=== PATIENT | male | born 1995 | race Caucasian/White ===

== ENCOUNTER → 2019-07-23 | Outpatient (CLI) | payer BC ==
--- NOTE | 2019-07-23 19:12 | FL ---
EXAMINATION: Cervical and Thoracic Esophagram DATE OF EXAM: 07/23/2019 CLINICAL INDICATION: 23-year-old male with dysphagia, cough, right-sided neck swelling. COMPARISON: None Total Fluoroscopy Time: 1 minute 19 seconds. Total images: 31. FINDINGS: The swallowing mechanism is normal and hypopharyngeal anatomy is preserved. The cervical and thoracic portions have a normal course and caliber and normal motility. The mucosa is normal and no persistent filling defect is encountered. No hiatal hernia is present. A single spontaneous episode of mild gastroesophageal reflux is demonstrated while the patient is ret urning in the table down position. No subsequent gastroesophageal reflux could be elicited. IMPRESSION: 1. A single spontaneous episode of mild gastroesophageal reflux in the table down position. 2. Otherwise, unremarkable esophagram. If there is visually apparent neck swelling, consider ultrasou nd evaluation including assessment of the thyroid gland.
== END | disposition home or self-care (01) ==
LOC: RADFLMAIN 10:49
PROVIDERS: ATTEND Otolaryngology
DX: K21.9 Gastro-esophageal reflux disease without esophagitis (principal)
CPT/HCPCS: 74220

== ENCOUNTER → 2019-10-04 | Outpatient (CLI) | payer BC ==
--- NOTE | 2019-10-04 10:10 | CT ---
EXAMINATION TYPE: CT soft tissue neck w con DATE OF EXAM: 10/04/2019 COMPARISON: None HISTORY: Episodes of dysphagia, dyspnea (sub thyroid cartilage). New submandibular swelling on left CT DLP: 432.8 mGycm CONTRAST: CT scan of the neck is performed with IV Contrast, patient injected with 100 mL of Isovue 300. Contrast enhanced CT of the neck was performed from the skull base through the lung apices. BB marker was placed at the site of clinical concern left neck. At the site of clinical concern there is an 8 mm hypoattenuating lesion of uncertain etiology which may reflect a lymph node. Intraparotid lesion is difficult to exclude. AIRWAY: The supraglottic, glottic, and subglottic portions of the airway appear patent and free of mass. SALIVARY GLANDS: The submandibular glands are free of mass or inflammatory process. THYROID GLAND: No nodules or masses seen. LYMPH NODES: No adenopathy seen greater than 1cm. LUNG APICES: No nodule or mass is seen. OTHER: Vascular structures are patent. No significant degenerative change of the cervical spine. N o abscess seen. IMPRESSION: At the site of clinical concern there is an 8 mm hypoattenuating lesion of uncertain etiology which m ay reflect a lymph node. Intraparotid lesion is difficult to exclude.
== END | disposition home or self-care (01) ==
LOC: RADCTMAIN 09:26
PROVIDERS: ATTEND Otolaryngology
DX: R13.10 Dysphagia, unspecified (principal); J02.9 Acute pharyngitis, unspecified
CPT/HCPCS: 70491

== ENCOUNTER → 2020-06-08 | Outpatient (CLI) | payer BC ==
[2020-06-08 13:52] LABS: African American GFR (CKD) >90 (>60 ml/min/1.73 sqM); Blood Urea Nitrogen 15 mg/dL (9-20); Non-African American GFR(CKD) >90 (>60 ml/min/1.73 sqM)
--- NOTE | 2020-06-08 13:58 | CT ---
EXAMINATION TYPE: CT soft tissue neck w con DATE OF EXAM: 06/08/2020 COMPARISON: 10/04/2019 HISTORY: Parotid nodule CT DLP: 359.50 mGycm CONTRAST: CT scan of the neck is performed with IV Contrast, patient injected with 100 ml mL of Isovue 300. Contrast enhanced CT of the neck was performed from the skull base through the lung apices. AIRWAY: The supraglottic, glottic, and subglottic portions of the airway appear patent and free of mass. SALIVARY GLANDS: Previously noted nodule adjacent to the lower pole of the left parotid gland is not clearly visualized at this time. No new nodules are seen. Submandibular glands are unremarkable. No i nflammatory processes seen. THYROID GLAND: No nodules or masses seen. LYMPH NODES: 1.3 cm lymph node right internal jugular chain measured less than 1 cm previously. A 1.2 cm mildly enlarged lymph node left internal jugular chain versus less than 1 cm previously. No addit ional adenopathy appreciated. LUNG APICES: No nodule or mass is seen. OTHER: Vascular structures are patent. No significant degenerative change of the cervical spine. N o abscess seen. IMPRESSION: 1.Previously noted nodule adjacent to the lower pole of the left parotid gland is not clearly visuali zed at this time. No new nodules are seen. 2. Internal jugular chain adenopathy as discussed above.
== END | disposition home or self-care (01) ==
LOC: RADCTMAIN 13:01
PROVIDERS: ATTEND Otolaryngology
DX: R59.9 Enlarged lymph nodes, unspecified (principal); D11.0 Benign neoplasm of parotid gland
CPT/HCPCS: 82565; 84520; 70491; 36415; Q9967

== ENCOUNTER 2021-01-10 17:29 | Emergency (ER) | payer BC ==
[2021-01-10] MEDS ORDERED: MAG HYDROX/AL HYDROX/SIMETH 30 ML, HYOSCYAMINE ELIXIR 10 ML, LIDOCAINE VISCOUS 2% 10 ML PO STA ×3 (18:03)
[2021-01-10] MEDS ORDERED: SODIUM CHLORIDE 0.9% 1,000 ML IV STA (18:03)
[2021-01-10 18:40] LABS: Basophils % (A) 0 %; Eosinophils # (A) 0.2 k/uL (0-0.7); Eosinophils % (A) 2 %; HCT 45.5 % (39.0-53.0); HGB 15.7 gm/dL (13.0-17.5); Lymphocytes # (A) 2.3 k/uL (1.0-4.8); Lymphocytes % (A) 31 %; MCH 33.6 pg (25.0-35.0); MCHC 34.4 g/dL (31.0-37.0); MCV 97.5 fL (80.0-100.0); Mean Platelet Volume 7.1; Monocytes # (A) 0.5 k/uL (0-1.0); Monocytes % (A) 6 %; Neutrophils # (A) 4.3 k/uL (1.3-7.7); Neutrophils % (A) 58 %; Platelet Count 192 k/uL (150-450); RBC 4.67 m/uL (4.30-5.90); RDW 11.6 % (11.5-15.5); WBC 7.4 k/uL (3.8-10.6)
[2021-01-10 18:45] LABS: Appearance,Urine Clear (Clear); Bilirubin,Urine Negative (Negative); Blood,Urine Negative (Negative); Color,Urine Colorless; Glucose,Urine (UA) Negative (Negative); Ketones,Urine Negative (Negative); Leukocyte Esterase,Urine Negative (Negative); Nitrite,Urine Negative (Negative); Protein,Urine Negative (Negative); Specific Gravity,Urine 1.002 (1.001-1.035); Urobilinogen,Urine <2.0 mg/dL (<2.0)
[2021-01-10 18:55] LABS: ALT 17 U/L (4-49); AST 24 U/L (17-59); African American GFR (CKD) >90 (>60 ml/min/1.73 sqM); Alkaline Phosphatase 55 U/L (38-126); Amylase 57 U/L (30-110); Anion Gap 8 mmol/L; Blood Urea Nitrogen 9 mg/dL (9-20); Calcium 9.9 mg/dL (8.4-10.2); Carbon Dioxide 30 mmol/L (22-30); Chloride 102 mmol/L (98-107); Glucose 94 mg/dL (74-99); Lipase 44 U/L (23-300); Non-African American GFR(CKD) >90 (>60 ml/min/1.73 sqM); Potassium 3.8 mmol/L (3.5-5.1); Sodium 140 mmol/L (137-145); Total Bilirubin 1.2 mg/dL (0.2-1.3); Total Protein 7.8 g/dL (6.3-8.2)
--- NOTE | 2021-01-10 19:01 | ED ---
Abdominal Pain HPI - General Source: patient Mode of arrival: ambulatory Limitations: no limitations <Silvestre Brooks - Last Filed: 01/10/21 19:50> <Sahil Up - Last Filed: 01/10/21 20:50> - General Chief Complaint: Abdominal Pain Stated Complaint: Difficulty Breathing, Chest Pain Time Seen by Provider: 01/10/21 17:36 - History of Present Illness Initial Comments: 25 year old male presenting to the emergency department with multiple chief complaints. Patient reports he has been dealing with epigastric abdominal pain and lower chest pain for approximately 1 year. Patient is a T seen his primary care physician multiple times. States he has also seen an ENT and GI specialist with no significant findings. Patient has had barium swallows, CT imaging of the neck as well as an upper GI scope. Patient was diagnosed with GERD and started on Protonix. Patient reports initially this helped alleviate some of the symptoms but now they're gradually returning. Patient reports he feels sharp pain 10/10 that usually last for about 30 minutes in the epigastric abdominal region and the lower midsternal region without any radiation. He states the pain is exacerbated when taking deep breaths. He denies any fevers or chills. He does report occasional diarrhea. (Silvestre Brooks) - Related Data Home Medications Medication Instructions Recorded Confirmed Multivitamins, Thera [Multivitamin 1 tab PO DAILY 01/10/21 01/10/21 (formulary)] Omeprazole 40 mg PO DAILY 01/10/21 01/10/21 Allergies Allergy/AdvReac Type Severity Reaction Status Date / Time No Known Allergies Allergy Verified 01/10/21 20:33 Review of Systems ROS Other: All systems not noted in ROS Statement are negative. <Silvestre Brooks - Last Filed: 01/10/21 19:50> ROS Other: All systems not noted in ROS Statement are negative. <Sahil Up - Last Filed: 01/10/21 20:50> ROS Statement: Those systems with pertinent positive or pertinent negative responses have been documented in the HPI. Past Medical History Past Medical History: No Reported History History of Any Multi-Drug Resistant Organisms: None Reported Past Surgical History: No Surgical Hx Reported Past Psychological History: No Psychological Hx Reported Smoking Status: Current every day smoker Past Alcohol Use History: None Reported Past Drug Use History: Marijuana <Silvestre Brooks - Last Filed: 01/10/21 19:50> General Exam Limitations: no limitations General appearance: alert, in no apparent distress, anxious Head exam: Present: atraumatic, normocephalic, normal inspection Eye exam: Present: normal appearance, PERRL, EOMI Pupils: Present: normal accommodation ENT exam: Present: normal exam, normal oropharynx, mucous membranes moist, TM's normal bilaterally, normal external ear exam Neck exam: Present: normal inspection, full ROM. Absent: tenderness Respiratory exam: Present: normal lung sounds bilaterally, chest wall tenderness (Lower midsternal chest pain). Absent: respiratory distress, wheezes, rales, rhonchi, stridor Cardiovascular Exam: Present: regular rate, normal rhythm, normal heart sounds GI/Abdominal exam: Present: soft, tenderness (Epigastric abdominal pain). Absent: distended Extremities exam: Present: normal inspection, full ROM, normal capillary refill. Absent: tenderness Back exam: Present: normal inspection, full ROM. Absent: tenderness, CVA tenderness (R), CVA tenderness (L) Neurological exam: Present: alert, oriented X3 Psychiatric exam: Present: normal affect, normal mood, anxious Skin exam: Present: warm, dry, intact, normal color <Silvestre Brooks - Last Filed: 01/10/21 19:50> Course Vital Signs 01/10/21 01/10/21 17:32 20:08 Temperature 98.1 F Pulse Rate 103 H 64 Respiratory 18 17 Rate Blood Pressure 149/81 128/81 O2 Sat by Pulse 100 100 Oximetry Medical Decision Making - Lab Data Result diagrams: 01/10/21 18:33 01/10/21 18:33 <Silvestre Brooks - Last Filed: 01/10/21 19:50> - Lab Data Result diagrams: 01/10/21 18:33 01/10/21 18:33 - Radiology Data Radiology results: report reviewed (CT abdomen/pelvis with IV contrast: No significant abnormality is seen) <Sahil Up - Last Filed: 01/10/21 20:50> - Medical Decision Making 25-year-old male presents to emergency department with multiple chief complaints. On physical examination, very mild epigastric abdominal tenderness. Patient is slightly emotional and anxious. CBC, CMP, UA, d-dimer, troponin is negative. EKG showing sinus rhythm with no significant ST or T-wave changes. CT of abdomen pelvis (Silvestre Brooks) - Lab Data Lab Results 01/10/21 01/10/21 01/10/21 Range/Units 18:33 18:33 18:33 WBC 7.4 (3.8-10.6) k/uL RBC 4.67 (4.30-5.90) m/uL Hgb 15.7 (13.0-17.5) gm/dL Hct 45.5 (39.0-53.0) % MCV 97.5 (80.0-100.0) fL MCH 33.6 (25.0-35.0) pg MCHC 34.4 (31.0-37.0) g/dL RDW 11.6 (11.5-15.5) % Plt Count 192 (150-450) k/uL MPV 7.1 Neutrophils % 58 % Lymphocytes % 31 % Monocytes % 6 % Eosinophils % 2 % Basophils % 0 % Neutrophils # 4.3 (1.3-7.7) k/uL Lymphocytes # 2.3 (1.0-4.8) k/uL Monocytes # 0.5 (0-1.0) k/uL Eosinophils # 0.2 (0-0.7) k/uL Basophils # 0.0 (0-0.2) k/uL D-Dimer (<0.60) mg/L FEU Sodium 140 (137-145) mmol/L Potassium 3.8 (3.5-5.1) mmol/L Chloride 102 (98-107) mmol/L Carbon Dioxide 30 (22-30) mmol/L Anion Gap 8 mmol/L BUN 9 (9-20) mg/dL Creatinine 0.98 (0.66-1.25) mg/dL Est GFR (CKD-EPI)AfAm >90 (>60 ml/min/1.73 sqM) Est GFR (CKD-EPI)NonAf >90 (>60 ml/min/1.73 sqM) Glucose 94 (74-99) mg/dL Calcium 9.9 (8.4-10.2) mg/dL Total Bilirubin 1.2 (0.2-1.3) mg/dL AST 24 (17-59) U/L ALT 17 (4-49) U/L Alkaline Phosphatase 55 (38-126) U/L Troponin I (0.000-0.034) ng/mL Total Protein 7.8 (6.3-8.2) g/dL Albumin 5.0 (3.5-5.0) g/dL Amylase 57 (30-110) U/L Lipase 44 (23-300) U/L Urine Color Colorless Urine Appearance Clear (Clear) Urine pH 8.0 (5.0-8.0) Ur Specific [place] 1.002 (1.001-1.035) Urine Protein Negative (Negative) Urine Glucose (UA) Negative (Negative) Urine Ketones Negative (Negative) Urine Blood Negative (Negative) Urine Nitrite Negative (Negative) Urine Bilirubin Negative (Negative) Urine Urobilinogen <2.0 (<2.0) mg/dL Ur Leukocyte Esterase Negative (Negative) 01/10/21 01/10/21 Range/Units 18:33 18:33 WBC (3.8-10.6) k/uL RBC (4.30-5.90) m/uL Hgb (13.0-17.5) gm/dL Hct (39.0-53.0) % MCV (80.0-100.0) fL MCH (25.0-35.0) pg MCHC (31.0-37.0) g/dL RDW (11.5-15.5) % Plt Count (150-450) k/uL MPV Neutrophils % % Lymphocytes % % Monocytes % % Eosinophils % % Basophils % % Neutrophils # (1.3-7.7) k/uL Lymphocytes # (1.0-4.8) k/uL Monocytes # (0-1.0) k/uL Eosinophils # (0-0.7) k/uL Basophils # (0-0.2) k/uL D-Dimer <0.17 (<0.60) mg/L FEU Sodium (137-145) mmol/L Potassium (3.5-5.1) mmol/L Chloride (98-107) mmol/L Carbon Dioxide (22-30) mmol/L Anion Gap mmol/L BUN (9-20) mg/dL Creatinine (0.66-1.25) mg/dL Est GFR (CKD-EPI)AfAm (>60 ml/min/1.73 sqM) Est GFR (CKD-EPI)NonAf (>60 ml/min/1.73 sqM) Glucose (74-99) mg/dL Calcium (8.4-10.2) mg/dL Total Bilirubin (0.2-1.3) mg/dL AST (17-59) U/L ALT (4-49) U/L Alkaline Phosphatase (38-126) U/L Troponin I <0.012 (0.000-0.034) ng/mL Total Protein (6.3-8.2) g/dL Albumin (3.5-5.0) g/dL Amylase (30-110) U/L Lipase (23-300) U/L Urine Color Urine Appearance (Clear) Urine pH (5.0-8.0) Ur Specific [place] (1.001-1.035) Urine Protein (Negative) Urine Glucose (UA) (Negative) Urine Ketones (Negative) Urine Blood (Negative) Urine Nitrite (Negative) Urine Bilirubin (Negative) Urine Urobilinogen (<2.0) mg/dL Ur Leukocyte Esterase (Negative) - EKG Data EKG Comments: Sinus rhythm with no ST or T-wave changes next M ventricular rate 81, OK 146, QRS 104, QTC 427. (Silvestre Brooks) Disposition Is patient prescribed a controlled substance at d/c from ED?: No Time of Disposition: 19:51 <Silvestre Brooks - Last Filed: 01/10/21 19:50> Time of Disposition: 20:50 <Sahil Up - Last Filed: 01/10/21 20:50> Clinical Impression: Abdominal pain, epigastric Disposition: HOME SELF-CARE Condition: Stable Instructions (If sedation given, give patient instructions): Abdominal Pain (ED) Additional Instructions: Follow-up with a GI specialist. Return to emergency department if symptoms worsen. Referrals: Clover High MD [Primary Care Provider] - 1-2 days Jimenez Gallegos MD [STAFF PHYSICIAN] - 1-2 days
--- NOTE | 2021-01-10 20:41 | CT ---
EXAMINATION TYPE: CT abdomen pelvis w con DATE OF EXAM: 01/10/2021 COMPARISON: 10/20/2016 HISTORY: Epigastric abdominal pain CT DLP: 802.8 mGycm Automated exposure control for dose reduction was used. TECHNIQUE: Helical acquisition of images was performed from the lung bases through the pelvis. CONTRAST: Performed without Oral Contrast and with IV Contrast, patient injected with 100 ml mL of Isovue 300. FINDINGS: LUNG BASES: No significant abnormality is appreciated. LIVER/GB: No significant abnormality is appreciated. PANCREAS: No significant abnormality is seen. SPLEEN: No significant abnormality is seen. ADRENALS: No significant abnormality is seen. KIDNEYS: No significant abnormality is seen. FREE AIR: No free air is visualized. RETROPERITONEAL ADENOPATHY: None visualized URINARY BLADDER: No significant abnormality is seen. PELVIC ADENOPATHY: None visualized. OSSEOUS STRUCTURES: No significant abnormality is seen. BOWEL: No significant abnormality is seen. IMPRESSION: NO SIGNIFICANT ABNORMALITY SEEN. ETIOLOGY OF THE PATIENT'S EPIGASTRIC PAIN IS INDETERMINATE ON THIS E XAM.
[2021-01-10 21:23] VITALS: BP 120/74; PULSE 80; RESP 18; TEMP 98.2
== END 2021-01-10 21:23 | disposition home or self-care (01) ==
LOC: EC 17:29
DX: R10.13 Epigastric pain (principal); R07.89 Other chest pain; F17.200 Nicotine dependence, unspecified, uncomplicated; F12.90 Cannabis use, unspecified, uncomplicated; K21.9 Gastro-esophageal reflux disease without esophagitis
CPT/HCPCS: 36415; 93005; 85379; 80053; 82150; 83690; 84484; 85025; 81003; 74177; 99284; Q9967; 99285

== ENCOUNTER → 2021-02-15 | Day surgery (SDC) | payer BC ==
[2021-02-10 14:48] VITALS: BMI 24.3
[~2021-02-15] MED LIST: LACTATED RINGERS 1,000 ML IV SCH; LIDOCAINE 1% (10MG/ML) FOR IV START INTRADERMA PRN; LIDOCAINE 1% INJ 10MG/ML (20 ML MDV) ONE; PROPOFOL 10 MG/ML 20 ML VIAL IV ONE
[2021-02-15 10:17] VITALS: RESP 16; TEMP 98.1
--- NOTE | 2021-02-15 11:51 | P.PCN ---
Date of Procedure: 02/15/21 Description of Procedure: Brief history: Patient is a pleasant 25-year-old male presenting for outpatient EGD and colonoscopy for evaluation of epigastric abdominal pain and change in bowel habits. Patient was seen in the clinic reporting symptoms of epigastric abdominal pain increased with stress. Computed tomography scan performed in evaluation negative for any intra-abdominal pathology. He had been started on omeprazole 40 mg daily with some improvement of symptoms however still having breakthrough reflux episodes of solid food dysphagia predominantly food present throughout. He also is reporting 2-3 loose bowel movements with associated urgency. Procedure performed: Esophagogastroduodenoscopy with biopsies Colonoscopy with biopsies Estimated blood loss: Minimal. Preoperative diagnosis: Epigastric abdominal pain, change in bowel habits Anesthesia: MAC Procedure: After informed consent was obtained from the patient was brought into the endoscopy unit and IV sedation was administered by anesthesia under continuous monitoring. Initially upper endoscopy was done. The Olympus GF 190 video endoscope was inserted into the mouth and esophagus intubated without any difficulty and was gradually advanced into the stomach and duodenum and carefully examined. The bulb and second part of the duodenum appeared normal, with biopsies taken. The scope was then withdrawn into the stomach adequately insufflated with air and upon careful examination the antrum and body, cardia and fundus appeared normal, except for some mild punctate erythema in the antrum and body suggestive of gastritis biopsies taken. The scope was then withdrawn into the esophagus. The GE junction was located at 45 cm to the incisors and biopsied. It appeared regular with no erythema erosions or ulcerations with biopsies taken of the midesophagus to rule out eosinophilic esophagitis. Rest of the esophagus appeared normal. Patient tolerated the procedure well. At this time the patient continued to remain sedation. Initial digital rectal examination was normal. Olympus CF 190 video colonoscope was then inserted into the rectum and gradually advanced to the cecum without any difficulty. Careful examination was performed as the scope was gradually being withdrawn. The prep was excellent. The cecum, ascending colon, transverse colon, descending colon, sigmoid colon and rectum appeared normal and normal-appearing terminal ileum with random biopsies taken of the right colon, left colon and terminal ileum due to altered bowel function . Retroflexion was performed in the rectum and no lesions were noted, Low-grade internal hemorrhoids noted. Patient tolerated the procedure well. Impression: 1. Mild gastritis. Biopsies of the duodenum, antrum and body, GE junction and mid esophagus. 2. Normal-appearing colon from rectum to cecum with normal-appearing terminal ileum and random biopsies taken of the right colon, left colon and terminal ileum. Recommendations: Findings of this examination were discussed with the patient as well as His girlfriend. Okay to resume diet. Okay to resume medication. Await pathology from biopsies. Continue current medical management. Follow-up in the GI clinic as scheduled.
[2021-02-15 12:21] VITALS: BP 122/58; PULSE 69
[2021-02-15 14:15] LABS: HCT 42.2 % (39.0-53.0); HGB 14.6 gm/dL (13.0-17.5); MCH 33.6 pg (25.0-35.0); MCHC 34.6 g/dL (31.0-37.0); Mean Platelet Volume 7.6; Platelet Count 174 k/uL (150-450); RBC 4.35 m/uL (4.30-5.90); RDW 11.8 % (11.5-15.5); WBC 6.5 k/uL (3.8-10.6)
[2021-02-15 14:35] LABS: ALT 20 U/L (4-49); AST 30 U/L (17-59); African American GFR (CKD) >90 (>60 ml/min/1.73 sqM); Albumin 4.4 g/dL (3.5-5.0); Alkaline Phosphatase 58 U/L (38-126); Anion Gap 6 mmol/L; Blood Urea Nitrogen 14 mg/dL (9-20); C Reactive Protein 6.8 mg/L (<10.0); Calcium 9.7 mg/dL (8.4-10.2); Carbon Dioxide 30 mmol/L (22-30); Chloride 103 mmol/L (98-107); Glucose 86 mg/dL (74-99); Non-African American GFR(CKD) >90 (>60 ml/min/1.73 sqM); Potassium 4.4 mmol/L (3.5-5.1); Sodium 139 mmol/L (137-145); Total Bilirubin 0.7 mg/dL (0.2-1.3)
[2021-02-15 16:15] LABS: Erythrocyte Sedimentation Rate 2 mm/hr (0-15)
[2021-02-15 20:08] LABS: Gliadin AB IgA, Deaminated NEGATIVE (NEGATIVE); Gliadin AB IgA, Unit <0.2 U/mL; Gliadin AB IgG, Deaminated NEGATIVE (NEGATIVE)
== END ==
LOC: ORWHC2ENDO 09:50
PROVIDERS: ATTEND Internal Medicine
DX: K64.8 Other hemorrhoids (principal); K21.9 Gastro-esophageal reflux disease without esophagitis; K29.70 Gastritis, unspecified, without bleeding; K20.0 Eosinophilic esophagitis; R19.4 Change in bowel habit; Z87.891 Personal history of nicotine dependence; Z79.899 Other long term (current) drug therapy
CPT/HCPCS: 88305; 80053; 85652; 85027; 86140; 83516 ×4; 45380; 43239; J2001; J2704

== ENCOUNTER → 2021-08-18 | Outpatient (CLI) | payer BC ==
--- NOTE | 2021-08-19 08:35 | CT ---
EXAMINATION TYPE: CT abdomen w con DATE OF EXAM: 08/18/2021 COMPARISON: CT 01/10/2021 HISTORY: RUQ pain CT DLP: 603 mGycm Automated exposure control for dose reduction was used. TECHNIQUE: Helical acquisition of images was performed from the lung bases through the top of iliac crest to include entire abdomen. CONTRAST: Performed with Oral Contrast and with IV Contrast, patient injected with 100 mL of Isovue 300. FINDINGS: Possible gastric wall thickening noted, there is a lack of distention, this may be normal v ariant. LUNG BASES: No significant abnormality is appreciated. LIVER/GB: No liver lesion. There is some mildly prominent intrahepatic biliary ducts likely within no rmal limits, gallbladder appears contracted, there may be a thickened wall, query some luminal high a ttenuation. PANCREAS: No significant abnormality is seen. SPLEEN: No significant abnormality is seen. ADRENALS: No significant abnormality is seen. KIDNEYS: Retroaortic left renal vein is noted. No hydronephrosis or renal mass bilaterally, no eviden t renal calculus. BOWEL: No significant abnormality is seen. There is some retained fecal debris in the visualized rig ht and transverse colon. The appendix is not seen. No evident bowel obstruction. LYMPH NODES: No significant abnormality is appreciated. OSSEOUS STRUCTURES: No significant abnormality is seen. FREE AIR: No Free Air visible ASCITES: None visible. RETROPERITONEAL ADENOPATHY: No Retroperitoneal Adenopathy visible. OTHER: IMPRESSION: QUESTIONABLE GASTRIC WALL THICKENING, THAT MAY BE UNDERLYING GASTRITIS, CONSIDER DIRECT VISUALIZATION INDICATED . GALLBLADDER WALL PROMINENCE MAY BE DUE TO LACK OF DISTENTION AND NORMAL VARIANT, CONS IDER HIDA SCAN, RIGHT UPPER QUADRANT ULTRASOUND FOR BETTER EVALUATION INDICATED.
== END | disposition home or self-care (01) ==
LOC: RADCTMAIN 13:05
PROVIDERS: ATTEND Nurse Practitioner Family
DX: R10.10 Upper abdominal pain, unspecified (principal)
CPT/HCPCS: 74160; Q9967

== ENCOUNTER → 2021-08-26 | Outpatient (CLI) | payer BC ==
--- NOTE | 2021-08-26 10:10 | US ---
EXAMINATION TYPE: US abdomen complete DATE OF EXAM: 08/26/2021 COMPARISON: CT 08/18/2021 CLINICAL HISTORY: 26-year-old male R10.11 RUQ abd pain. TECHNIQUE: Multiple sonographic images of the abdomen are obtained. FINDINGS: EXAM MEASUREMENTS: Liver Length: 16.5 cm Gallbladder Wall: 0.2 cm CBD: 0.2 cm Spleen: 11.7 cm Right Kidney: 10.9 x 5.8 x 4.5 cm Left Kidney: 11.3 x 4.6 x 5.4 cm Pancreas: wnl Liver: wnl Gallbladder: wnl, folds seen supine Evidence for sonographic Luis's sign: neg CBD: wnl Spleen: wnl Kidneys: No hydronephrosis. Upper IVC: wnl Abd Aorta: Distal obscured by overlying bowel gas IMPRESSION: Unremarkable sonographic examination of the abdomen.
== END | disposition home or self-care (01) ==
LOC: RADUSWWP 08:14
PROVIDERS: ATTEND Family Medicine
DX: R10.11 Right upper quadrant pain (principal)
CPT/HCPCS: 76700

== ENCOUNTER → 2021-09-16 | Outpatient (CLI) | payer BC ==
--- NOTE | 2021-09-16 16:06 | NM ---
EXAMINATION TYPE: NM hepatobiliary w EF DATE OF EXAM: 09/16/2021 COMPARISON: Ultrasound abdomen August 26, 2021 HISTORY: Right upper quadrant pain with diminished appetite and epigastric pain along with nausea TECHNIQUE: After the intravenous administration of 3.89 mCi Tc 99m Mebrofenin hepatobiliary scintigra phy is performed. Immediate images post injection. FINDINGS: There is satisfactory initial accumulation of tracer by the liver. The gallbladder is visualized wit hin 40 minutes. The small bowel activity is noted within 50 minutes. At one hour 8 ounces of oral e nsure plus is given to mimic CCK and gallbladder ejection fraction is calculated at 40 %, in the norm al range. Therefore there is no scintigraphic evidence of cystic or common bile duct obstruction to suggest acute cholecystitis or gallbladder dyskinesia. IMPRESSION: Exam is within normal limits.
== END | disposition home or self-care (01) ==
LOC: RADNMMAIN 13:01
PROVIDERS: ATTEND Family Medicine
DX: R10.11 Right upper quadrant pain (principal)
CPT/HCPCS: 78226; A9537

== ENCOUNTER → 2021-10-28 | Outpatient (CLI) | payer BC ==
--- NOTE | 2021-10-28 11:23 | CT ---
EXAMINATION TYPE: CT neck chest w con DATE OF EXAM: 10/28/2021 9:35 AM COMPARISON: CT 06/08/2020 soft tissue neck with contrast HISTORY: chest pain, dysphagia CT DLP: 1124 mGycm Automated exposure control for dose reduction was used. CONTRAST: CT scan of the neck and chest is performed following with IV Contrast, patient injected with 100 mL o f Isovue 300. Axial images are obtained, coronal and sagittal reformatted images are reviewed. FINDINGS: There is motion on the exam. Airway: No gross abnormality seen. Parotid/submandibular glands: No gross abnormality seen. Carotid/Vascular Structures: Normal as seen Osseous Structures: No significant change Other: Previously described jugulodigastric nodes show measurements within normal limits as on prior IMPRESSION: No significant abnormalities evident
== END | disposition home or self-care (01) ==
LOC: RADCTMAIN 08:37
PROVIDERS: ATTEND Internal Medicine Hematology & Oncology
DX: R59.0 Localized enlarged lymph nodes (principal); R63.4 Abnormal weight loss
CPT/HCPCS: 70491; 71260; Q9967

== ENCOUNTER 2022-02-16 08:26 | Emergency (ER) | payer BC ==
[2022-02-16 08:35] VITALS: RESP 18; TEMP 98.5
[2022-02-16] MEDS ORDERED: LORazepam 2 MG/ML INJ IV STA (08:49)
[2022-02-16] MEDS ORDERED: KETOROLAC 15 MG/ML 1 ML VIAL IVP STA (08:50)
--- NOTE | 2022-02-16 09:04 | ED ---
General Adult HPI - General Chief complaint: Chest Pain Stated complaint: chest & rib pain, facial numbness Time Seen by Provider: 02/16/22 08:37 Source: patient, RN notes reviewed Mode of arrival: wheelchair Limitations: no limitations - History of Present Illness Initial comments: This a 26-year-old male presents emergency Department chief complaint of right- sided rib pain. Patient states it's been on and off pain for last week. Patient states it hurts when he takes deep breath. Patient states that he has no rashes. Does admit that he was sick recently with cough and cold-like symptoms that did resolve. Patient is no prior cardiac disease. Patient does admit that he has underlying B12 deficiency, reflux issues. Patient states he takes his meds and immediately. States pains in the worsened today and became concerned. Patient developed what he describes as left-sided numbness and tingling patient does feel very anxious at this time. Patient denies any focal weakness or headache no other complaints. - Related Data Home Medications Medication Instructions Recorded Confirmed Omeprazole 40 mg PO DAILY PRN 01/10/21 02/16/22 Lysine [l-Lysine] 500 mg PO DAILY 02/10/21 02/16/22 Vitamin B12 (Unknown Dose) 1 dose PO DAILY 02/10/21 02/16/22 Previous Rx's Medication Instructions Recorded Ibuprofen [Motrin] 600 mg PO Q8HR PRN #20 tab 02/16/22 Allergies Allergy/AdvReac Type Severity Reaction Status Date / Time latex Allergy Rash/Hives Verified 02/16/22 09:58 Review of Systems ROS Statement: Those systems with pertinent positive or pertinent negative responses have been documented in the HPI. ROS Other: All systems not noted in ROS Statement are negative. Past Medical History Past Medical History: No Reported History Additional Past Medical History / Comment(s): "having problems with my throat to my stomach" History of Any Multi-Drug Resistant Organisms: None Reported Past Surgical History: No Surgical Hx Reported Past Anesthesia/Blood Transfusion Reactions: No Reported Reaction Additional Past Anesthesia/Blood Transfusion Reaction / Comment(s): no hx of anesthesia Past Psychological History: No Psychological Hx Reported Smoking Status: Current every day smoker Past Alcohol Use History: Occasional Past Drug Use History: Marijuana - Past Family History Mother Family Medical History: No Reported History General Exam Limitations: no limitations General appearance: alert, in no apparent distress Head exam: Present: atraumatic, normocephalic, normal inspection Eye exam: Present: normal appearance, PERRL, EOMI. Absent: scleral icterus, conjunctival injection, periorbital swelling ENT exam: Present: normal exam, normal oropharynx, mucous membranes moist Neck exam: Present: normal inspection, full ROM. Absent: tenderness, meningismus, lymphadenopathy Respiratory exam: Present: normal lung sounds bilaterally, chest wall ten derness. Absent: respiratory distress, wheezes, rales, rhonchi, stridor Cardiovascular Exam: Present: regular rate, normal rhythm, normal heart sounds. Absent: systolic murmur, diastolic murmur, rubs, gallop, clicks GI/Abdominal exam: Present: soft, normal bowel sounds. Absent: distended, tenderness, guarding, rebound, rigid Neurological exam: Present: alert, oriented X3, CN II-XII intact. Absent: motor sensory deficit Skin exam: Present: warm, dry, intact, normal color. Absent: rash Course Vital Signs 02/16/22 02/16/22 02/16/22 08:32 09:30 10:07 Temperature 98.5 F Pulse Rate 94 68 Pulse Rate [ 67 Sitting Resist Coater Developer] Respiratory 18 18 Rate Blood Pressure 141/79 124/72 O2 Sat by Pulse 100 97 Oximetry EKG Findings - EKG Comments: EKG Findings:: EKG performed at 842 sinus rhythm with a rate of 81 IN 147 QRS 102 QT/QTC 361/[address] elevation or depression noted Medical Decision Making - Medical Decision Making 26-year-old presented for right-sided chest pain. Pain is reproducible labs EKG and chest x-ray unremarkable. I do feel this is related to chest wall pain. Patient will be discharged stable condition return parameters discussed. Had some underlying ongoing anxiety the with Ativan. - Lab Data Result diagrams: 02/16/22 09:13 02/16/22 09:13 Lab Results 02/16/22 02/16/22 02/16/22 Range/Units 09:13 09:13 09:13 WBC 8.1 (3.8-10.6) k/uL RBC 4.47 (4.30-5.90) m/uL Hgb 15.2 (13.0-17.5) gm/dL Hct 44.1 (39.0-53.0) % MCV 98.6 (80.0-100.0) fL MCH 34.1 (25.0-35.0) pg MCHC 34.6 (31.0-37.0) g/dL RDW 12.6 (11.5-15.5) % Plt Count 196 (150-450) k/uL MPV 7.5 Neutrophils % 60 % Lymphocytes % 32 % Monocytes % 4 % Eosinophils % 2 % Basophils % 0 % Neutrophils # 4.9 (1.3-7.7) k/uL Lymphocytes # 2.6 (1.0-4.8) k/uL Monocytes # 0.3 (0-1.0) k/uL Eosinophils # 0.2 (0-0.7) k/uL Basophils # 0.0 (0-0.2) k/uL PT 11.0 (9.0-12.0) sec INR 1.0 (<1.2) APTT 26.3 (22.0-30.0) sec D-Dimer 0.18 (<0.60) mg/L FEU Sodium 141 (137-145) mmol/L Potassium 3.7 (3.5-5.1) mmol/L Chloride 103 (98-107) mmol/L Carbon Dioxide 26 (22-30) mmol/L Anion Gap 12 mmol/L BUN 13 (9-20) mg/dL Creatinine 0.98 (0.66-1.25) mg/dL Est GFR (CKD-EPI)AfAm >90 (>60 ml/min/1.73 sqM) Est GFR (CKD-EPI)NonAf >90 (>60 ml/min/1.73 sqM) Glucose 86 (74-99) mg/dL Calcium 9.9 (8.4-10.2) mg/dL Magnesium 2.1 (1.6-2.3) mg/dL Total Bilirubin 1.0 (0.2-1.3) mg/dL AST 24 (17-59) U/L ALT 18 (4-49) U/L Alkaline Phosphatase 69 (38-126) U/L Troponin I (0.000-0.034) ng/mL Total Protein 8.0 (6.3-8.2) g/dL Albumin 4.9 (3.5-5.0) g/dL 02/16/22 Range/Units 09:13 WBC (3.8-10.6) k/uL RBC (4.30-5.90) m/uL Hgb (13.0-17.5) gm/dL Hct (39.0-53.0) % MCV (80.0-100.0) fL MCH (25.0-35.0) pg MCHC (31.0-37.0) g/dL RDW (11.5-15.5) % Plt Count (150-450) k/uL MPV Neutrophils % % Lymphocytes % % Monocytes % % Eosinophils % % Basophils % % Neutrophils # (1.3-7.7) k/uL Lymphocytes # (1.0-4.8) k/uL Monocytes # (0-1.0) k/uL Eosinophils # (0-0.7) k/uL Basophils # (0-0.2) k/uL PT (9.0-12.0) sec INR (<1.2) APTT (22.0-30.0) sec D-Dimer (<0.60) mg/L FEU Sodium (137-145) mmol/L Potassium (3.5-5.1) mmol/L Chloride (98-107) mmol/L Carbon Dioxide (22-30) mmol/L Anion Gap mmol/L BUN (9-20) mg/dL Creatinine (0.66-1.25) mg/dL Est GFR (CKD-EPI)AfAm (>60 ml/min/1.73 sqM) Est GFR (CKD-EPI)NonAf (>60 ml/min/1.73 sqM) Glucose (74-99) mg/dL Calcium (8.4-10.2) mg/dL Magnesium (1.6-2.3) mg/dL Total Bilirubin (0.2-1.3) mg/dL AST (17-59) U/L ALT (4-49) U/L Alkaline Phosphatase (38-126) U/L Troponin I <0.012 (0.000-0.034) ng/mL Total Protein (6.3-8.2) g/dL Albumin (3.5-5.0) g/dL Disposition Clinical Impression: Chest wall pain Disposition: HOME SELF-CARE Condition: Stable Instructions (If sedation given, give patient instructions): Costochondritis (ED), Chest Wall Pain (ED) Additional Instructions: Please return to the Emergency Department if symptoms worsen or any other concerns. Prescriptions: Ibuprofen [Motrin] 600 mg PO Q8HR PRN #20 tab PRN Reason: Pain Is patient prescribed a controlled substance at d/c from ED?: No Referrals: Clover High MD [Primary Care Provider] - 1-2 days Time of Disposition: 10:42
--- NOTE | 2022-02-16 09:32 | XR ---
EXAMINATION TYPE: XR chest 2V DATE OF EXAM: 02/16/2022 COMPARISON: X-ray dated 03/19/1998 HISTORY: Chest pain TECHNIQUE: Frontal and lateral views of the chest are obtained. FINDINGS: Hyperinflated hyper translucent lungs, please correlate for COPD. Unremarkable lungs otherwise. No pl eural effusion or pneumothorax. No cardiomegaly. Unremarkable bony thoracic cage. IMPRESSION: Suspected COPD, please correlate clinically and with pulmonary function tests.
[2022-02-16 10:04] LABS: ALT 18 U/L (4-49); AST 24 U/L (17-59); African American GFR (CKD) >90 (>60 ml/min/1.73 sqM); Albumin 4.9 g/dL (3.5-5.0); Alkaline Phosphatase 69 U/L (38-126); Anion Gap 12 mmol/L; Blood Urea Nitrogen 13 mg/dL (9-20); Calcium 9.9 mg/dL (8.4-10.2); Carbon Dioxide 26 mmol/L (22-30); Chloride 103 mmol/L (98-107); Glucose 86 mg/dL (74-99); Magnesium 2.1 mg/dL (1.6-2.3); Non-African American GFR(CKD) >90 (>60 ml/min/1.73 sqM); Potassium 3.7 mmol/L (3.5-5.1); Sodium 141 mmol/L (137-145)
[2022-02-16 10:08] VITALS: BP 124/72; PULSE 68
[2022-02-16 10:08] LABS: Partial Thromboplastin Time 26.3 sec (22.0-30.0)
[2022-02-16 10:12] LABS: Basophils % (A) 0 %; Eosinophils # (A) 0.2 k/uL (0-0.7); Eosinophils % (A) 2 %; HCT 44.1 % (39.0-53.0); HGB 15.2 gm/dL (13.0-17.5); Lymphocytes # (A) 2.6 k/uL (1.0-4.8); Lymphocytes % (A) 32 %; MCH 34.1 pg (25.0-35.0); MCHC 34.6 g/dL (31.0-37.0); MCV 98.6 fL (80.0-100.0); Mean Platelet Volume 7.5; Monocytes # (A) 0.3 k/uL (0-1.0); Monocytes % (A) 4 %; Neutrophils # (A) 4.9 k/uL (1.3-7.7); Neutrophils % (A) 60 %; Platelet Count 196 k/uL (150-450); RBC 4.47 m/uL (4.30-5.90); RDW 12.6 % (11.5-15.5); WBC 8.1 k/uL (3.8-10.6)
== END 2022-02-16 11:03 | disposition home or self-care (01) ==
LOC: EC 08:26
DX: R07.89 Other chest pain (principal); Z91.040 Latex allergy status; F17.200 Nicotine dependence, unspecified, uncomplicated
CPT/HCPCS: 36415; 93005; 85379; 80053; 83735; 84484; 85025; 85610; 85730; 71046; 99285; 96374; 96375; J2060; J1885; 99284

== ENCOUNTER 2023-03-10 02:28 | Emergency (ER) | payer BC, OTHER ==
[2023-03-10] MEDS ORDERED: SODIUM CHLORIDE 0.9% 1,000 ML IV STA (02:31)
[2023-03-10 02:50] LABS: Basophils % (A) 0 %; Eosinophils # (A) 0.2 k/uL (0-0.7); Eosinophils % (A) 2 %; HCT 41.6 % (39.0-53.0); HGB 13.8 gm/dL (13.0-17.5); Lymphocytes # (A) 1.7 k/uL (1.0-4.8); Lymphocytes % (A) 15 %; MCHC 33.2 g/dL (31.0-37.0); MCV 99.1 fL (80.0-100.0); Monocytes # (A) 0.6 k/uL (0-1.0); Monocytes % (A) 5 %; Neutrophils # (A) 8.6 k/uL (1.3-7.7); Neutrophils % (A) 76 %; Platelet Count 208 k/uL (150-450); RBC 4.19 m/uL (4.30-5.90); WBC 11.3 k/uL (3.8-10.6)
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
[2023-03-10 03:02] LABS: Partial Thromboplastin Time 23.3 sec (22.0-30.0); Prothrombin Time 10.4 sec (9.0-12.0)
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
[2023-03-10 03:16] LABS: ALT 43 U/L (4-49); AST 68 U/L (17-59); African American GFR (CKD) >90 (>60 ml/min/1.73 sqM); Albumin 4.6 g/dL (3.5-5.0); Alkaline Phosphatase 69 U/L (38-126); Anion Gap 13 mmol/L; Blood Urea Nitrogen 21 mg/dL (9-20); Calcium 8.8 mg/dL (8.4-10.2); Carbon Dioxide 22 mmol/L (22-30); Chloride 106 mmol/L (98-107); Glucose 83 mg/dL (74-99); Non-African American GFR(CKD) >90 (>60 ml/min/1.73 sqM); Potassium 5.3 mmol/L (3.5-5.1); Sodium 141 mmol/L (137-145); Total Bilirubin 0.5 mg/dL (0.2-1.3); Total Protein 7.3 g/dL (6.3-8.2)
[2023-03-10 03:22] LABS: Alcohol 135 mg/dL
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
[2023-03-10 04:11] LABS: Amphetamine Screen,Urine Not Detected (NotDetected); Barbiturate Screen,Urine Not Detected (NotDetected); Benzodiazepines Screen,Urine Not Detected (NotDetected); Cocaine Screen,Urine Not Detected (NotDetected); Methadone Screen, Urine Not Detected (NotDetected); Opiate Screen,Urine Not Detected (NotDetected); Oxycodone Screen, Urine Not Detected (NotDetected); Phencyclidine Screen,Urine Not Detected (NotDetected); Tricyclic Antidepressant,Urine Not Detected (NotDetected); Urn Cannabinoid Scrn Detected (NotDetected)
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
== END 2023-03-10 05:58 | disposition home or self-care (01) ==
LOC: EC 02:28
DX: Z04.1 Encounter for examination and observation following transport accident (principal); F17.200 Nicotine dependence, unspecified, uncomplicated; F12.90 Cannabis use, unspecified, uncomplicated; Z91.040 Latex allergy status; V49.40XA Driver injured in collision with unspecified motor vehicles in traffic accident, initial encounter
CPT/HCPCS: 36415; 93005; 86900; 86901; 80053; 84484; 85025; 85610; 85730; 86850; 80306; 80320; 72170; 73030; 73080; 73110; 71045; 72125; 70450; 71260; 74177; 99285; Q9967